=== PATIENT | female | born 1935 | race Caucasian/White ===

== ENCOUNTER 2016-06-03 20:58 | Inpatient (IN) | payer MEDICARE, BC ==
[~2016-06-03] VITALS: Ht 170.2 cm; Wt 111.2 kg
--- NOTE | ~2016-06-03 | HP ---
PATIENT'S NAME: TERRENCE RIVERA [facility] AGE: 80 Y [address] ROOM: [place] [id number] LOCATION: [facility] ADMIT DATE: 06/03/2016 History & Physical DISCHARGE DATE: FAMILY PHYSICIAN: PHYSICIAN, UNKNOWN ATTENDING PHYSICIAN: JUSTINE ESTRADA DATE OF SERVICE: 06/03/2016 HISTORY OF PRESENT ILLNESS: Ms. Rivera is an 80-year-old female, transferred here from the [facility] after she was diagnosed with fractures of the left hip and left ankle. The patient was delivering card to her neighbors when the neighbor's dog thrust open the door and knocked her to the ground. She was unable to ambulate because of left hip pain. She was taken to her local hospital by ambulance. She is accompanied by her son. She denies history of pre-existing left hip or left ankle pain. She denies pain elsewhere as a result of the fall. She states that she struck her head, but there was no loss of consciousness. She denies pain elsewhere as a result of the incident. At baseline, she uses a cane for balance. She lives independently. MEDICATIONS ON ADMISSION: 1. Potassium supplements. 2. Hydrocodone. 3. Losartan. 4. Insulin. ACTIVE MEDICAL PROBLEMS: 1. Insulin-dependent diabetes mellitus. 2. Osteoarthritis. PAST SURGICAL HISTORY: 1. Right total knee arthroplasty (performed by [facility] several years ago). 2. Left total knee arthroplasty (performed elsewhere approximately twenty years ago). 3. Instrumented lumbar fusion (performed in [place] by Dr. Smith). ALLERGIES: NO KNOWN DRUG ALLERGIES. REVIEW OF SYSTEMS: CARDIORESPIRATORY: She denies chest pain or shortness of breath. EXTREMITIES: She denies pain in either upper extremity or the right lower extremity as a result of the fall. She denies history of deep venous PATIENT'S NAME: TERRENCE RIVERA [facility] AGE: 80 Y [address] ROOM: [address] [address] LOCATION: [facility] ADMIT DATE: 06/03/2016 History & Physical DISCHARGE DATE: FAMILY PHYSICIAN: PHYSICIAN, UNKNOWN ATTENDING PHYSICIAN: JUSTINE ESTRADA thrombosis. SOCIAL HISTORY: Functional Condition: She lives independently. She uses a cane for balance. Habits: Non-smoker. PHYSICAL EXAMINATION: GENERAL: Alert and oriented, well hydrated and well nourished elderly female, who is in no distress. EXTREMITIES: Her left lower extremity is shortened and externally rotated versus the right. There is pain with passive range of motion of the left hip. There is no pain with passive range of motion of the right hip. There is neutral tibial femoral alignment bilaterally. There are well-healed longitudinal midline scars over the anterior aspects of both knees. There is no tenderness at either knee. She is moderately obese. There is tenderness at the medial and lateral malleoli of the left ankle, but there is no significant swelling at the left ankle. There was no deformity. There were no active skin lesions or masses throughout either lower extremity. Sensation to light touch is intact throughout the left foot. She is able to actively dorsiflex and plantar flex the left ankle with 4/5 motor strength. Capillary refill is less than two seconds at the left toes. Pulses at the left foot are not palpable. RADIOGRAPHIC STUDIES: Left hip radiographs demonstrate a displaced, mildly comminuted intertrochanteric fracture. There was no hardware or lytic lesion at the left hip. There was no joint space narrowing at the left hip. Incidental notation is made of an instrumented lumbar fusion with a multilevel pedicle screw construct. Outside two oblique views of the left ankle suggest the presence of a non- displaced lateral malleolus fracture. AP, lateral, and mortise radiographs of the left ankle (obtained upon arrival here) demonstrate no fracture, no joint space narrowing, and no syndesmosis widening. IMPRESSION: 1. Displaced left hip intertrochanteric fracture. 2. Possible non-displaced left ankle lateral malleolus fracture. 3. Insulin-dependent diabetes mellitus. RECOMMENDATIONS: I have recommended immobilization of the left ankle in a Cam boot. We will PATIENT'S NAME: TERRENCE RIVERA [facility] AGE: 80 Y [address] ROOM: [address] [address] LOCATION: [facility] ADMIT DATE: 06/03/2016 History & Physical DISCHARGE DATE: FAMILY PHYSICIAN: PHYSICIAN, UNKNOWN ATTENDING PHYSICIAN: JUSTINE ESTRADA obtain followup radiographs when the patient returns to our office for followup of the hip fracture. I have discussed operative and non-operative options for the left hip fracture. I have recommended internal fixation with an intramedullary device. I have discussed risks, benefits, limitations, and alternatives to surgery as well as potential adverse sequelae of the injury itself. I have specifically reviewed risks and implications of infection, deep venous thrombosis, pulmonary embolism, mortality, malunion, nonunion, neurovascular complications, blood transfusion risks, as well as potential need for further surgery. I have discussed the potential for decubitus ulcer formation and pneumonia. The patient has been placed at bedrest. Mechanical DVT deep venous thrombosis prophylaxis and incentive spirometry have been initiated. Informed consent has been granted by the patient herself as well as her son (who was present at her bedside). The Hospitalist team has been consulted to provide preoperative medical evaluation and optimization, as well as perioperative medical management. MD GISELLA PERRY/eric /[id number] D: [id number] T: [id number] HISTORY & PHYSICAL
--- NOTE | ~2016-06-03 | DS ---
PATIENT'S NAME: TERRENCE CAUSEY [facility] AGE: 80 Y [address] ROOM: [place] [address] LOCATION: [facility] ADMIT DATE: 06/03/2016 Discharge Summary DISCHARGE DATE: 06/07/2016 FAMILY PHYSICIAN: Physician, Unknown ATTENDING PHYSICIAN: Dwight Howell IDENTIFICATION: This is an 80-year-old female. PRIMARY DIAGNOSIS: Intertrochanteric fracture of the left hip. SECONDARY DIAGNOSES: 1. Insulin-dependent diabetes mellitus. 2. Left malleolus fracture. PROCEDURE PERFORMED: Open reduction and internal fixation of left hip intertrochanteric fracture with intramedullary device (gamma nail). HISTORY: The patient is an 80-year-old female, who presented with a left hip fracture. Please refer to her consultation notes as well as her admission history and physical. HOSPITAL COURSE: The patient underwent the above specified procedure on 06/04/2016 without complications. General endotracheal anesthesia was utilized. She received 24 hours of perioperative prophylactic antibiotics. She remained hemodynamically stable, neurovascularly intact throughout her entire hospital course. Her postoperative deep venous thrombosis prophylaxis consisted of Lovenox, early mobilization, and pneumatic compression devices. She received daily physical therapy for gait training and transfer training and progressed decently in physical therapy. On her date of discharge, the incisions at the hip were healing well and showed no signs of infection. DISPOSITION: To transitional care unit for further wound management and physical therapy. DISCHARGE DIET: Regular. DISCHARGE ACTIVITY: She to be strict left touch toe weightbearing. There is to be no left hip strengthening or range of motion. There is to be no dressing changes. She is to wear CAM boot to left foot at all times. She is to notify Dr. Howell immediately if she experiences increased pain, fevers, chills, erythema, or drainage. DISCHARGE MEDICATIONS: 1. Lovenox 40 mg subcutaneously each day, x30 days postoperatively. 2. [place] 5/325, take 1 to 2 tablets p.o. every 4 hours as needed for pain. PATIENT'S NAME: TERRENCE CAUSEY [facility] AGE: 80 Y [address] ROOM: [place] [address] LOCATION: [facility] ADMIT DATE: 06/03/2016 Discharge Summary DISCHARGE DATE: 06/07/2016 FAMILY PHYSICIAN: Physician, Unknown ATTENDING PHYSICIAN: Dwight Howell 3. She is then instructed to continue all of her other preadmission medications as instructed by her internal medicine physician. FOLLOWUP: Followup appointment is to be with Dr. Howell one week subsequent to dismissal from the transitional care unit for initial postoperative evaluation and x-rays of the hip at that time. MAYCOL MCKEON FOR MD STEFANY PERRYB/modl /[id number] d: 06/15/16 0430 t: 07/10/16 1203, DISCHARGE SUMMARY
--- NOTE | ~2016-06-03 | HP ---
PATIENT'S NAME: TERRENCE CAUSEY [facility] AGE: 80 Y [address] ROOM: [place] [address] [place] [facility] [place]MIT DATE: 06/03/2016 History & Physical DISCHARGE DATE: 06/07/2016 FAMILY PHYSICIAN: Physician, Unknown ATTENDING PHYSICIAN: Dwight Howell DATE OF SERVICE: ADDENDUM: HISTORY OF PRESENT ILLNESS: Of note, the date of the injury was the date of admission (June 03, 2016). MD GISELLA PERRY/eric /[id number] D: [id number] T: [id number] HISTORY & PHYSICAL
--- NOTE | ~2016-06-03 | OR ---
PATIENT'S NAME: TERRENCE CAUSEY [facility] AGE: 80 Y [address] ROOM: [address] [address] LOCATION: [facility] ADMIT DATE: 06/03/2016 OR/Procedure Report DISCHARGE DATE: FAMILY PHYSICIAN: PHYSICIAN, UNKNOWN ATTENDING PHYSICIAN: JUSTINE ESTRADA SURGEON: Justine Estrada MD HORSE STUD WORKER: DATE OF PROCEDURE: 06/04/2016 PREOPERATIVE DIAGNOSIS: Intertrochanteric fracture left hip. POSTOPERATIVE DIAGNOSIS: Intertrochanteric fracture left hip. PROCEDURE PERFORMED: Open reduction and internal fixation of left hip intertrochanteric fracture with intramedullary device (gamma nail). SURGEON: Justine Estrada MD ANESTHESIA: General endotracheal anesthesia. ESTIMATED BLOOD LOSS: Less than 100 mL. IMPLANTS: TFN-A 125 degree nail with 95 mm lag screw and 38 mm distal interlocking screw. DRAINS: None. SPECIMEN: None. COMPLICATIONS: None. INDICATION FOR PROCEDURE: Please refer to my separately dictated consultation note. The patient presents with a left hip intertrochanteric fracture. Operative and nonoperative options have been reviewed. Potential adverse sequelae of the injury itself have been reviewed. Risks, benefits, limitations, and indications for surgery have been thoroughly reviewed and informed consent has been granted. We have specifically reviewed risks and implications of the following: infection, malunion, nonunion, deep venous thrombosis, pulmonary embolism, mortality, neurovascular complications, blood transfusion risks, decubitus ulcer formation, pneumonia, avascular necrosis, and the potential need for further surgery (including the potential need for salvage with hip hemiarthroplasty versus total hip arthroplasty). We have discussed the necessity for 2 months of restricted weightbearing postoperatively. A preoperative internal medicine consultation has been obtained, and the patient has been medically cleared for surgery. PATIENT'S NAME: TERRENCE CAUSEY [facility] AGE: 80 Y [address] ROOM: [address] [address] LOCATION: [facility] ADMIT DATE: 06/03/2016 OR/Procedure Report DISCHARGE DATE: FAMILY PHYSICIAN: PHYSICIAN, UNKNOWN ATTENDING PHYSICIAN: JUSTINE ESTRADA DESCRIPTION OF PROCEDURE: The patient was positioned supine on the fracture table after administration of anesthesia and prophylactic antibiotics. The correct side and anticipated procedure were confirmed via a verbal timeout including myself, the regrinder, and the circulating nurse. A well-padded groin post was placed. Both feet and ankles were well padded. The right foot was placed into a stirrup-type leg chin. The left foot was placed into a traction boot. Under fluoroscopic guidance, gentle longitudinal traction and internal rotation were applied across the fracture site through the left foot until a suitable reduction had been confirmed under AP and lateral fluoroscopic imaging. The lateral aspect of the left hip and thigh were scrubbed, prepped, and draped with vigilant sterile technique. The tip of the left greater trochanter was approached through a 5 cm direct lateral longitudinal incision. The iliotibial band was sharply divided longitudinally in line with the overlying skin incision. The tip of the left greater trochanter was palpated, and a cannulated awl was utilized to access the intramedullary canal of the proximal femur through the tip of the left greater trochanter. A ball tipped guidewire was placed through the awl and across the fracture site under fluoroscopic guidance, and the awl was subsequently removed. The cannulated entrance reamer was utilized through the appropriate soft tissue guide. The gamma nail was seated to the appropriate depth over the guidewire, and the guidewire was extracted. Fluoroscopic imaging confirmed appropriate position of the gamma nail. The outrigger guide and guide cannula were subsequently utilized to place a threaded-tipped guidewire centrally within the left femoral head and neck through a separate direct lateral 2 cm longitudinal incision. Appropriate position of the guidewire was confirmed under AP and lateral fluoroscopic imaging. Appropriate depth for the lag screw was measured. The cannulated reamer was set to the appropriate depth and fully seated through the appropriate soft tissue guide. The lag screw was seated to the appropriate depth under AP and lateral fluoroscopic guidance. The anti-rotational set screw was deployed. The outrigger guide and cannula were subsequently utilized to place the distal interlocking screw through a separate 5 mm direct lateral longitudinal incision. AP, lateral, and oblique fluoroscopic imaging of the left hip and left proximal femur confirmed appropriate position of all hardware and maintenance of an appropriate reduction of the fracture. PATIENT'S NAME: TERRENCE CAUSEY [facility] AGE: 80 Y [address] ROOM: [address] [address] LOCATION: [facility] ADMIT DATE: 06/03/2016 OR/Procedure Report DISCHARGE DATE: FAMILY PHYSICIAN: PHYSICIAN, UNKNOWN ATTENDING PHYSICIAN: JUSTINE ESTRADA Each of the 3 incisions was thoroughly irrigated with bacteriostatic saline lavage. The fascia was closed with simple deep interrupted 0 Vicryl sutures. Each of the incisions was closed with superficial buried interrupted 2-0 Vicryl sutures and surgical cecy. The dressings consisted of Xeroform gauze, sterile gauze, and occlusive tape. There were no complications. The patient was carefully transferred off the fracture table and transported to the postanesthesia care unit in stable condition. MD GISELLA PERRY/eric /[id number] d: 06/04/164 t: 06/08/16 0756, OPERATIVE SUMMARY
--- NOTE | ~2016-06-03 | CON ---
PATIENT'S NAME: TERRENCE CAUSEY [facility] AGE: 80 Y [address] ROOM: [address] [place], [place] [address] LOCATION: G3N ADMIT DATE: 06/03/2016 Consultation DISCHARGE DATE: FAMILY PHYSICIAN: PHYSICIAN, UNKNOWN ATTENDING PHYSICIAN: JUSTINE ESTRADA REASON FOR CONSULTATION: Preoperative medical clearance for orthopedic surgery to fix left distal fibular fracture and left intertrochanteric hip fracture without displacement, status post a mechanical fall. CHIEF COMPLAINT: Left hip and left lower extremity pain, status post mechanical fall. HISTORY OF PRESENT ILLNESS: This is an 80-year-old female who says that she was visiting her friend and when she knocked on the door, her friend opened the door, but her 2 dogs run onto the door and the door hit the patient and the patient fell backwards falling about 3-4 steps of stairs landing on her left side of the hip and also hitting the front of her head against some ground. She did not suffer any loss of consciousness. She also denies any palpitation, nausea, vomiting, diaphoresis, or lightheadedness prior to the fall. The fall was purely mechanical after the dogs run on to the door and the door pushed against her and she fell backwards. After the fall, she had pain in her left hip and left lower extremity and she could not get up. Therefore, the patient was brought by the ambulance to the outside facility in [place]. While over there, the patient had an x-ray of the left ankle and also a CT of the head without contrast and also an x-ray of the lumbar spine as well as an x-ray of the left hip. The reports showed distal fibular fracture without dislocation and left intertrochanteric hip fracture, also without displacement, and the CT of the head was normal. No gross fracture on the lumbar spine x-ray, and the left hip x-ray also showed lucency traversing the superior pubic ramus and nondisplaced fracture not excluded. Because of these findings, the patient was transferred here for higher level of care to fix the fracture. Upon further questioning about her past medical history, she is a physically active and highly functional individual at baseline. Her METS score is above 4, and the patient never complained of any chest pain at rest or exertion and also never complained of any exertional dyspnea or dyspnea at rest. She does not have any history of cardiac problem in the past besides hypertension, never had a myocardial infarction, never was told to have a heart failure, and never required heart surgery of any kind. She was also never smoked and does not have any history of asthma or COPD in general. She denies any cardiopulmonary problem in the past. REVIEW OF SYSTEMS: PATIENT'S NAME: TERRENCE CAUSEY [facility] AGE: 80 Y [address] ROOM: [address] [address] LOCATION: [facility] ADMIT DATE: 06/03/2016 Consultation DISCHARGE DATE: FAMILY PHYSICIAN: PHYSICIAN, UNKNOWN ATTENDING PHYSICIAN: JUSTINE ESTRADA As mentioned in the history of present illness. All other systems reviewed and negative except those mentioned in the history of present illness. PAST MEDICAL HISTORY: 1. Hyperlipidemia. 2. Diabetes type 2. 3. Hypertension. 4. Hypothyroidism. 5. Osteoarthritis. 6. Gastroesophageal reflux disease. 7. Chronic kidney disease, unclear what is her baseline, given that I do not have much blood work to compare. CKD most likely secondary to long- standing diabetes and hypertension. ALLERGIES: NO KNOWN DRUG ALLERGIES ACCORDING TO THE PATIENT. HOME MEDICATIONS: Currently is being reconciled. Not on long-term anticoagulation at home. SOCIAL HISTORY: The patient denies any present or former history of smoking or illegal drug use or alcohol intake. The patient ambulates with a cane at baseline. PAST SURGICAL HISTORY: 1. Status post hysterectomy. 2. Status post tonsillectomy. 3. Status post bilateral knee replacement in the past. 4. Status post lower back surgery, details not clear. 5. Status post cholecystectomy. 6. Status post appendectomy. FAMILY HISTORY: Father from myocardial infarction at age 78 and mother from advanced age from a cause that she could not remember. PHYSICAL EXAMINATION: VITAL SIGNS: At the time of my dictation, temperature 98.3, blood pressure 153/67, heart rate 90, respirations 16, and saturation 94% on room air. Pain 3/10 in the left hip and in the left lower extremity. GENERAL APPEARANCE: Alert and oriented x3, in no acute distress. HEENT: Pupils equal, round, and reactive to light. Extraocular muscles intact. Anicteric sclerae. Nasal turbinates are normal bilaterally. Moist PATIENT'S NAME: TERRENCE CAUSEY [facility] AGE: 80 Y [address] ROOM: [id number] [place], [place] [address] LOCATION: [facility] ADMIT DATE: 06/03/2016 Consultation DISCHARGE DATE: FAMILY PHYSICIAN: PHYSICIAN, UNKNOWN ATTENDING PHYSICIAN: JUSTINE ESTRADA oral mucosa. No oral thrush. She has a laceration and bruise on her left forehead and right periorbital area. Vision intact. NECK: No JVD. No cervical lymphadenopathy. No neck stiffness. RESPIRATORY: Clear. CARDIOVASCULAR: Regular rate and rhythm. Normal S1, S2. No murmur, no rubs, no gallops. ABDOMEN: Obese, soft, nontender, nondistended. Bowel sounds present. No hepatosplenomegaly. EXTREMITIES: No edema in upper or lower extremities. Dorsalis pedis pulse present bilaterally +2, and femoral pulses are also present bilaterally +2. Posterior tibialis pulse also present +2 on palpation bilaterally. SKIN: No ulcer, no rash, no cyanosis. MUSCULOSKELETAL: Left lower extremity not examined due to fracture. Right lower extremity: Intact range of motion. NEUROLOGIC: Grossly nonfocal except that the range of motion not examined on the left lower extremity due to the fracture. Sensation intact in all 4 extremities. LABORATORY DATA: Urinalysis: 500 leukocytes, many bacteria, negative nitrite, white blood cells 50-100. Laboratory data from the outside facility on admission shows INR 1.06, PTT 23.9. Sodium 136, potassium 4.4, chloride 100, carbon dioxide 25.6, BUN 29, creatinine 1.889, GFR 25, and glucose 253. Calcium 9.2, total bilirubin 0.3, AST 14, ALT 18, alkaline phosphatase 98, total protein 7.8, and albumin 3.5. White blood cell 10.6, hemoglobin 11.1, hematocrit 36, MCV 82.2, and platelet 280. IMAGING STUDIES: 1. Chest x-ray here on admission, the official reading is pending; based on my review, unremarkable. 2. X-ray of the left ankle performed from the outside facility showed distal fibular fracture without dislocation. 3. X-ray of the lumbar spine from the outside facility today showed posterior pedicle fran fusion, lumbar sacral spine. Limited exam. No gross fracture. 4. X-ray of the left hip from the outside facility today showed intertrochanteric hip fracture without displacement. Lucency traversing the superior pubic ramus, nondisplaced fracture not excluded. 5. CT of the head without contrast today from an outside facility showed no acute intracranial abnormality. 6. EKG on admission here for the preop clearance showed sinus rhythm and heart rate of 99 with a first-degree AV block, 212 msec, no acute ischemic findings. No prior EKG for comparison. ASSESSMENT: PATIENT'S NAME: TERRENCE CAUSEY [facility] AGE: 80 Y [address] ROOM: [address] [address] LOCATION: [facility] ADMIT DATE: 06/03/2016 Consultation DISCHARGE DATE: FAMILY PHYSICIAN: PHYSICIAN, UNKNOWN ATTENDING PHYSICIAN: JUSTINE ESTRADA 1. Regarding her left distal fibular fracture and left intertrochanteric hip fracture without displacement, status post mechanical fall: Per Orthopedic Surgery. Pain control per Orthopedic Surgery team. DVT prophylaxis per Orthopedic Surgery team. 2. Regarding her preoperative medical clearance per Orthopedic Surgery: She is medically cleared to go for orthopedic surgery tonight. From the guideline for the preoperative medical clearance for a noncardiac surgery, the patient does not have any active cardiac contraindication to undergo orthopedic surgery. Her METS score is more than 4 and orthopedic surgery is considered intermediate risk, and the patient is medically cleared without any active cardiac contraindication for orthopedic surgery tonight. 3. Regarding her hyperlipidemia: She is on diet control. 4. Regarding her diabetes, type 2: At home, she uses Humulin 70/30 45 units subcutaneous twice a day with meals and alogliptin 25 mg p.o. daily. For now, I will hold both medications and will do sliding scale insulin with aspart a.c. and h.s., mild dose, and titrate as necessary and also with a long-acting insulin, insulin Levemir 10 units b.i.d. and titrate as necessary while she is here in hospital, once she is discharged home, she can go back on home regimen. 5. Regarding her hypertension: I will continue her home dose of amlodipine 5 mg p.o. daily, but I will hold Lasix 60 mg p.o. daily, given that I am not sure what is her CKD baseline and I do not want to over-diurese her. Followup plan depends on clinical course. The patient does not look volume overloaded. She is saturating 94% on room air. Chest x-ray looks clean and her lungs are clear. There is no edema in the legs. 6. Regarding her gastroesophageal reflux disease: Continue home omeprazole 20 mg p.o. daily. 7. Regarding her hypothyroidism: Continue her home medication, levothyroxine 75 mcg p.o. daily. 8. Regarding her CKD: Not sure what is her baseline GFR, but currently her GFR 25 from the outside facility today, it belongs to stage IV, likely from the longstanding diabetes and hypertension. As mentioned before, I am not sure what is her baseline GFR. I am going to hold the Lasix and hold alogliptin. Encourage oral intake. Avoid NSAIDs and WALT inhibitor and ARBs for now. Further plan depends on clinical course. She is making good urine output. While NPO, she will get gently IV fluid hydration and monitor her kidney function to see if it improves, if improved, then LAURA or LAURA on CKD was likely the cause. 9. Regarding her asymptomatic pyuria: I am not going to treat her asymptomatic pyuria given the patient is not septic, the patient does not have any urinary symptoms which are dysuria or urinary frequency or urgency. Her urine does not look cloudy. She has asymptomatic bacteriuria which does not require treatment. 10. Deep venous thrombosis prophylaxis: Per Orthopedic Surgery. Time spent on the day of care in consultation 35 minutes including chart review, interviewing and examining the patient, going over the plan of care with the nurse and the patient, and also addressing all the questions and PATIENT'S NAME: TERRENCE CAUSEY [facility] AGE: 80 Y [address] ROOM: [place] [address] LOCATION: [facility] ADMIT DATE: 06/03/2016 Consultation DISCHARGE DATE: FAMILY PHYSICIAN: PHYSICIAN, UNKNOWN ATTENDING PHYSICIAN: JUSTINE ESTRADA concerns the patient and the patient's son had at the bedside. MIN LACKEY MD CC/modl /[id number] d: 06/04/16 0035 t: 06/23/16 1117, CONSULTATION REPORT
[2016-06-03] MEDS ORDERED: K-TAB 10MEQ10 MEQ PO (22:28)
[2016-06-03] MEDS ORDERED: NORCO 10-325 T1 EACH PO (22:29)
[2016-06-03] MEDS ORDERED: HYZAAR 100-251 EACH PO (22:30)
[2016-06-03] MEDS ORDERED: HUMULIN 70100 UNIT/M SUB-Q (22:32)
[2016-06-03 22:36] LABS: BILIRUBIN URINE NEGATIVE (NEGATIVE); BLOOD URINE 25 /UL (NEGATIVE); COLOR URINE YELLOW (YELLOW); GLUCOSE URINE NEGATIVE (NEGATIVE); KETONE URINE NEGATIVE (NEGATIVE); LEUKOCYTES URINE 500 /UL (NEGATIVE); NITRITE URINE NEGATIVE (NEGATIVE); PROTEIN URINE 30 mg/dL (NEGATIVE); TURBIDITY URINE 1+ (CLEAR); UROBILINOGEN URINE 1 mg/dL (NORMAL)
[2016-06-03 23:09] LABS: WBC URINE 50-100 #/HPF (NEGATIVE)
[2016-06-03 23:10] LABS: BACTERIA URINE MANY (NEGATIVE); EPITHELIAL URINE 0-2 #/HPF (NEGATIVE)
--- NOTE | 2016-06-03 23:30 | NUR ---
Went to the neighbors rang the door campos. The neighbors dogs hit the screen door and it opened and knoced her over and fell down 3-4 steps. Patient states that she did not lose conciouness. Then the neighbors came out and called the ambulance and took her to the [facility]. Then taken to [facility].
--- NOTE | 2016-06-04 06:37 | NUR ---
Significant Event: Davis catheter. NPO. Surgery today. CAM boot to L) lower leg. Ice to the L) hip. Wellborn and Morphine last at 0558. On room air. CSM WNL. Accu check every 6 hours while NPO. Follow up:
--- NOTE | 2016-06-04 09:41 | NUR ---
PT TAKEN DOWN TO PRE-OP AT 0730.
--- NOTE | 2016-06-04 12:15 | NUR ---
Introduced self/role to son, waiting in patients room as she is in recovery now. He would like his mom to go to TCU for a few weeks. I explained that they are closing so not sure that will be possible. Otherwise it would be the [facility] for a few weeks then to [facility] for the remaining recovery before going home. He was fine with me checking into those places today for bed availability. Family doctor is Sarabjit Hernández. 1230 Spoke to Janell at [facility], yes they do have beds but will kind of depend on her weight bearing status as to whether they can accept or not. 1235 Spoke to Violetta at [facility] and they also have beds open.
[2016-06-04] MEDS ORDERED: HUMULIN 70100 UNIT/M SUB-Q (16:52)
[2016-06-04] MEDS ORDERED: NORVASC5 MG PO (16:53)
[2016-06-04] MEDS ORDERED: PRILOSEC20 MG PO (16:53)
[2016-06-04] MEDS ORDERED: LEVOTHROID(SYN75 MCG PO (16:53)
[2016-06-04] MEDS ORDERED: CYMBALTA60 MG PO (16:54)
[2016-06-04] MEDS ORDERED: NEURONTIN300 MG PO (16:54)
[2016-06-04] MEDS ORDERED: LASIX20 MG PO (16:54)
--- NOTE | 2016-06-04 17:42 | NUR ---
Significant Event:PT ARRIVED BACK TO FLOOR FROM PACU AT 1330. POST OP VITALS CONT. 3RD HOURLY AT 1915. DRESSING TO LT HIP INTACT. SMALL DRESSING UP IN RT GROIN AREA. ICE TO INCISION. UP IN THE RECLINER THIS AFTERNOON AFTER RETURNING Follow up:
--- NOTE | 2016-06-05 04:14 | NUR ---
Patient alert and oriented, tranfers are poor with two assist, has boot to left foot/lower leg for tib/fib fx, dressings to left hip are clean dry and intact, ice to left hip, csm with in normal limits, taking narco for pain control, has rested well tonight
[2016-06-05 06:06] LABS: BASOPHIL # 0.1 K/uL (0.0-0.2); BASOPHIL % 0.6 %; EOSINOPHIL # 0.5 K/uL (0.0-0.5); EOSINOPHIL % 3.9 %; HEMATOCRIT 26.7 % (30.0-46.0); HEMOGLOBIN 8.4 g/dL (10.0-15.0); IMMATURE GRANULOCYTE # 0.1 K/uL (0.0-0.3); IMMATURE GRANULOCYTE % 0.5 %; LYMPHOCYTE # 1.9 K/uL (0.8-4.0); LYMPHOCYTE % 16.5 %; MCH 26.3 pg (27.0-34.0); MCHC 31.5 gm/dL (32.0-36.5); MCV 83.7 fl (83.0-98.0); MONOCYTE % 8.9 %; MPV 9.8 fl (9.4-12.4); NEUTROPHIL # (ANC) 8.1 K/uL (1.8-7.8); NEUTROPHIL % 69.6 %; NRBC % 0 /100WBC (0-0.00); PLATELET COUNT 176 K/uL (150-450); RBC 3.19 M/uL (3.00-5.00); RDW-CV 15.2 % (11.9-14.6); WBC 11.7 K/uL (4.0-11.0)
[2016-06-05 06:25] LABS: ALBUMIN 2.6 gm/dL (3.5-5.0); ANION GAP 12.3 (10.0-19.0); CALCIUM 7.9 mg/dL (8.5-10.5); CREATININE 1.3 mg/dL (0.5-1.1); MAGNESIUM 1.6 mg/dL (1.3-2.6); PHOSPHORUS 2.7 mg/dL (2.5-4.9); POTASSIUM 4.3 mMol/L (3.7-5.1)
--- NOTE | 2016-06-05 13:17 | NUR ---
Significant Event:AOx3. VSS. CSM WNL. Dressing to left hip C/D/I. Up with 2 assist with walker. Moves very slow. Davis intact. Percocet given for pain. Has tib/fib Fx on L) leg with boot on. AC&HS accuchecks. Ice to L) hip. TTWB to L) leg. Follow up:
--- NOTE | 2016-06-06 04:43 | NUR ---
Patient alert and oriented x3, tranfers are poor with two assist and walker and gaitbelt, has boot to left foot/lower leg for tib/fib fracture, TT WB to LLEG, dressings clean dry and intact to left hip, ice in place to left hip, csm with in normal limits has been taking percocet q4hrs for pain, has rested well tonight, talked to patient about folely catheter removal she doesn't want it removed because she does not want to have to get up to the commode/or bathroom to toilet, she did agree to let me remove it this am so that is the plan.
[2016-06-06 04:53] LABS: HEMATOCRIT 27.4 % (30.0-46.0); HEMOGLOBIN 8.2 g/dL (10.0-15.0)
[2016-06-06 05:05] LABS: ALBUMIN 2.6 gm/dL (3.5-5.0); ANION GAP 12.3 (10.0-19.0); CREATININE 1.3 mg/dL (0.5-1.1); PHOSPHORUS 2.5 mg/dL (2.5-4.9); POTASSIUM 4.3 mMol/L (3.7-5.1)
--- NOTE | 2016-06-06 16:15 | NUR ---
Significant Event:Up in chair for 5 hrs did very well. Transfer heavy 2 assist with lots of encouragement. Percocet 1 tab last at 1525. Left hip drsg CDI. Ice to hip. Boot on to Left foot. TTWB left. Voided x1 with 75 out. Ryan was dc'd at 0600. Denies need urination problems. VSS. O2 at 2L. Family at beside. Accuchecks covered. Follow up: transfer to TCU if bed available.
--- NOTE | 2016-06-06 22:26 | NUR ---
Significant Event: Patient alert and oriented. Denies abnormal sensation. VSS on 2L oxygen. New orders for valium as patient reports muscle spasms. Percocet given x1. Voiding without complications. Concertated urine noted. Pleasant and cooperative with cares. Follow up: continue, pain
--- NOTE | 2016-06-07 04:57 | NUR ---
Significant Event: BEEN REPOSITIONED IN BED WITH 2 ASSIST. ICE BAG TO LEFT HIP. HAD PERCOCET TAB ONE AT 0419 FOR PAIN RATED 8 LEFT HIP-LEG. HAD VALIUM 5MG TAB AT 0453 FOR SPASMS, RATED AT 8. Follow up:
[2016-06-07 05:11] LABS: HEMATOCRIT 25.7 % (30.0-46.0)
[2016-06-07 05:23] LABS: HEMOGLOBIN 7.7 g/dL (10.0-15.0)
[2016-06-07 05:37] LABS: CALCIUM 8.5 mg/dL (8.5-10.5); CREATININE 1.2 mg/dL (0.5-1.1)
--- NOTE | 2016-06-07 08:25 | NUR ---
Sent referral to TCU via [facility]. 09 Ellen from TCU called and they can accept patient as long as she comes today. 09 Spoke to Charge Nurse about TCU. She will contact the needed doctors. 1040 Informed patient. Called her son Duy. [address] [facility] and [facility] know of TCU plan for now.
--- NOTE | 2016-06-07 12:30 | NUR ---
[facility] note: A1C noted at 8.2 % on admission. Provided a Diabetes Survival Skills checklist and Diabetes management booklet provided. Patient is encouraged to complete the form as time allows today. Offered updates regarding diabetes education while hospitalized and discussed rational for proper control of blood sugars to reduce risks of complications.
--- NOTE | 2016-06-07 15:12 | NUR ---
PATIENT A/OX3 VS STABLE ON 2L 02 PER NC. PATIENT IS A 2 ASSIST TRANSFER WITH NO WEIGHT BEARING TO THE L) LEG. PATIENT UP TO THE CHAIR THIS SHIFT. LOOSE BM THIS SHIFT. PATIENT COMPLAINS OF PAIN TO THE LEG, PERCOCET GIVEN WITH RELIEF NOTED. PATIENT ON ADA DIET. ACHS ACCUCHECK WITH MILD SLIDING SCALE. PATIENT ALSO HAS SCHEDULED 6 UNITS WITH MEALS. LUNGS ARE CLEAR AND DIMINISHED. PATIENT HAS A CAM BOOT TO THE L) LEG THAT HAS TO BE ON AT ALL TIMES. IV TO L) WRIST SL AND R) AC SL. PATIENT TAKES PILLS WITH NO DIFFICULTY. PATIENT PLEASANT AND COOPERATIVE WITH CARES.
== END 2016-06-07 13:05 | DRG 481 ==
LOC: G3N 21:40 → GMSU 21:40
PROVIDERS: Internal Medicine; ADMIT Orthopaedic Surgery
PROC: 0QS704Z Reposition Left Upper Femur with Internal Fixation Device, Open Approach (ICD-10-PCS; principal; 2016-06-04)
DX: S72.142A Displaced intertrochanteric fracture of left femur, initial encounter for closed fracture (principal); N18.4 Chronic kidney disease, stage 4 (severe); E11.40 Type 2 diabetes mellitus with diabetic neuropathy, unspecified; E11.22 Type 2 diabetes mellitus with diabetic chronic kidney disease; S82.65XA Nondisplaced fracture of lateral malleolus of left fibula, initial encounter for closed fracture; G89.18 Other acute postprocedural pain; I12.9 Hypertensive chronic kidney disease with stage 1 through stage 4 chronic kidney disease, or unspecified chronic kidney disease; E78.5 Hyperlipidemia, unspecified; E03.9 Hypothyroidism, unspecified; K21.9 Gastro-esophageal reflux disease without esophagitis; E66.01 Morbid (severe) obesity due to excess calories; M19.90 Unspecified osteoarthritis, unspecified site; W18.09XA Striking against other object with subsequent fall, initial encounter; W10.8XXA Fall (on) (from) other stairs and steps, initial encounter; Z96.653 Presence of artificial knee joint, bilateral; Z68.38 Body mass index [BMI] 38.0-38.9, adult; Z79.4 Long term (current) use of insulin; Z79.899 Other long term (current) drug therapy
CPT/HCPCS: C1713; J0131; J0690; J1650; J2001; J2270; J2405; J3010; J3360; J7030

== ENCOUNTER 2016-06-07 13:23 | Inpatient (IN) | payer MEDICARE, BC ==
[~2016-06-07] VITALS: Ht 170.2 cm; Wt 108.0 kg
--- NOTE | ~2016-06-07 | DS ---
PATIENT'S NAME: TERRENCE CAUSEY [facility] AGE: 80 Y [address] ROOM: [address] [place], [place] [address] LOCATION: [facility] ADMIT DATE: 06/07/2016 Discharge Summary DISCHARGE DATE: 07/05/2016 FAMILY PHYSICIAN: Physician, Unknown ATTENDING PHYSICIAN: Dwight Howell PRIMARY DIAGNOSIS: Status post open reduction internal fixation of left hip fracture. SECONDARY DIAGNOSES: 1. Diabetes mellitus type 2. 2. Essential hypertension. 3. Hypothyroidism. HISTORY: The patient is an 80-year-old female who underwent an open reduction and internal fixation of left hip intertrochanteric fracture with intramedullary device (gamma nail) on 06/04/2016 without complications. She remained hemodynamically stable and neurovascularly intact her entire hospital course. She remained on her postoperative deep vein thrombosis prophylaxis which consisted of Lovenox, early mobilization, and pneumatic compression devices. She received daily physical therapy for gait training, transfer training, range of motion and quadriceps isometric exercises, and did progress well in physical therapy. The nursing staff also provided daily dressing changes when needed and monitored her wound periodically. On her day of discharge, on July 05, 2016, the incision at the hip was healing well and showed no signs of infection or skin necrosis. DISPOSITION: [facility]. DISCHARGE INSTRUCTIONS: Discharge diet was a diabetic diet. Discharge activity, she is to be strict toe-touch weightbearing on her left lower extremity with no left hip range of motion or strengthening. She is to continue quadriceps isometric exercises as instructed. She was to keep her operative extremity elevated at least 90% of the day. She was to notify Dr. Howell immediately if she experienced any increased pain, fevers, chills, erythema, or drainage. DISCHARGE MEDICATIONS: 1. Lovenox 40 mg inject subcutaneously daily in the abdomen for 30 days for postop DVT prophylaxis. 2. Mcalester 5/325 mg 1 to 2 tabs p.o. every 4 to 6 hours p.r.n. for pain. 3. Valium 5 mg, one tab p.o. every 6 hours p.r.n. for muscle spasms. She was then instructed to continue all her other pre-admission medications as instructed by her internal medicine doctor. PATIENT'S NAME: TERRENCE CAUSEY [facility] AGE: 80 Y [address] ROOM: [address] [address] LOCATION: [facility] ADMIT DATE: 06/07/2016 Discharge Summary DISCHARGE DATE: 07/05/2016 FAMILY PHYSICIAN: Physician, Unknown ATTENDING PHYSICIAN: Dwight Howell FOLLOWUP: Her followup appointment was to be with Dr. Howell's office on day of discharge for her initial postoperative evaluation. EVAN FERNANDES PA-C FOR MD NARINDER PERRY/eric /[id number] d: 07/10/16 0451 t: 07/13/16 0846, DISCHARGE SUMMARY
--- NOTE | ~2016-06-07 | ENPV ---
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 Procedure Type of Study: Veins:Lower Extremities DVT Study, Lower Extremity Left. Indications for Study:Swelling of Limb and Pain in Limb. Appropriate Use Criteria:9 Patient Status:Routine. Study Location:Inpatient Portable. Technical Quality:Adequate visualization. Velocities are measured in cm/s ; Diameters are measured in cm Right Lower Extremities DVT Study Measurements Right 2D and Doppler Measurements + + + + +------+------+ + !Location !Visualized!Compressibility!Thrombosis!Signal!Reflux!Reflux ! ! ! ! ! ! ! !(sec) ! + + + + +------+------+ + !Common !Yes !Yes !None !Phasic! ! ! !Femoral ! ! ! ! ! ! ! + + + + +------+------+ + Left Lower Extremities DVT Study Measurements Left 2D and Doppler Measurements + + + + +------+------+ + !Location !Visualized!Compressibility!Thrombosis!Signal!Reflux!Reflux ! ! ! ! ! ! ! !(sec) ! + + + + +------+------+ + !GSV Thigh !Yes !Yes !None !Phasic! ! ! + + + + +------+------+ + !Common !Yes !Yes !None !Phasic! ! ! !Femoral ! ! ! ! ! ! ! + + + + +------+------+ + !Prox !Yes !Yes !None !Phasic! ! ! !Femoral ! ! ! ! ! ! ! + + + + +------+------+ + !Mid Femoral!Yes !Yes !None !Phasic! ! ! + + + + +------+------+ + !Dist !Yes !Yes !None !Phasic! ! ! !Femoral ! ! ! ! ! ! ! + + + + +------+------+ + !Popliteal !Yes !Yes !None !Phasic! ! ! + + + + +------+------+ + !Gastroc !Yes !Yes !None ! ! ! ! + + + + +------+------+ + !PTV !Yes !Yes !None ! ! ! ! + + + + +------+------+ + !Peroneal !Yes !Yes !None ! ! ! ! + + + + +------+------+ + Signature dtt: FAY CLARK dtangelita: 06/23/16 1231 Physician Self Edit
[~2016-06-07 13:23] MED LIST: CYMBALTA60 MG PO; HUMULIN 70100 UNIT/M SUB-Q; HYZAAR 100-251 EACH PO; K-TAB 10MEQ10 MEQ PO; LASIX20 MG PO; LEVOTHROID(SYN75 MCG PO; NEURONTIN300 MG PO; NORCO 10-325 T1 EACH PO; NORVASC5 MG PO; PRILOSEC20 MG PO
[2016-06-14 15:30] LABS: ANION GAP 13.2 (10.0-19.0); CALCIUM 9.1 mg/dL (8.5-10.5); CREATININE 1.4 mg/dL (0.5-1.1); POTASSIUM 4.2 mMol/L (3.7-5.1)
[2016-06-28 05:45] LABS: BASOPHIL # 0.1 K/uL (0.0-0.2); BASOPHIL % 1.1 %; EOSINOPHIL # 0.6 K/uL (0.0-0.5); EOSINOPHIL % 7.1 %; HEMOGLOBIN 10.8 g/dL (10.0-15.0); IMMATURE GRANULOCYTE % 0.4 %; LYMPHOCYTE # 3.7 K/uL (0.8-4.0); MCV 83.8 fl (83.0-98.0); MONOCYTE # 1.3 K/uL (0.0-1.0); MPV 8.9 fl (9.4-12.4); NEUTROPHIL # (ANC) 2.8 K/uL (1.8-7.8); NEUTROPHIL % 32.4 %; NRBC % 0 /100WBC (0-0.00); RDW-CV 16.5 % (11.9-14.6); WBC 8.5 K/uL (4.0-11.0)
[2016-06-28 05:46] LABS: HEMATOCRIT 35.8 % (30.0-46.0); MCH 25.3 pg (27.0-34.0); MCHC 30.2 gm/dL (32.0-36.5); PLATELET COUNT 386 K/uL (150-450); RBC 4.27 M/uL (3.00-5.00)
[2016-06-28 06:02] LABS: ANION GAP 11.1 (10.0-19.0); CALCIUM 9.3 mg/dL (8.5-10.5); CREATININE 1.5 mg/dL (0.5-1.1); POTASSIUM 4.1 mMol/L (3.7-5.1)
== END 2016-07-05 10:40 | DRG 561 ==
LOC: GSNF 13:23
PROVIDERS: Internal Medicine; Nurse Practitioner Family; ADMIT Orthopaedic Surgery
DX: S72.142D Displaced intertrochanteric fracture of left femur, subsequent encounter for closed fracture with routine healing (principal); E11.22 Type 2 diabetes mellitus with diabetic chronic kidney disease; E11.40 Type 2 diabetes mellitus with diabetic neuropathy, unspecified; E03.9 Hypothyroidism, unspecified; E78.5 Hyperlipidemia, unspecified; K21.9 Gastro-esophageal reflux disease without esophagitis; Z79.4 Long term (current) use of insulin; K59.00 Constipation, unspecified; I12.9 Hypertensive chronic kidney disease with stage 1 through stage 4 chronic kidney disease, or unspecified chronic kidney disease; N18.3 Chronic kidney disease, stage 3 (moderate)
CPT/HCPCS: J1650